=== PATIENT | male | born 1980 ===

== ENCOUNTER 2018-12-09 14:05 | Emergency (ER) | payer OTHER ==
[~2018-12-09] VITALS: Ht 172.7 cm; Wt 72.6 kg
[~2018-12-09 14:05] MED LIST: TUSSI-PRES B LIQ5 ML; VIREAD150 MG
[2018-12-09] MEDS ORDERED: GENVOYA TABLET1 EACH (14:12)
== END 2018-12-09 19:58 | disposition home or self-care (01) ==
LOC: ER 14:05
DX: K29.70 Gastritis, unspecified, without bleeding (principal); K52.9 Noninfective gastroenteritis and colitis, unspecified; E86.0 Dehydration